=== PATIENT | male | born 1995 | race Caucasian/White ===

== ENCOUNTER → 2017-02-09 | Outpatient (CLI) | payer OTHER ==
[~2017-02-09] MED LIST: DIPH25CA65 PO; PENI-82 PO
--- NOTE | 2017-02-09 17:01 | DIAGNOSTIC IMAGING REPORT ---
TWO VIEW CHEST CLINICAL HISTORY: Preoperative examination. FINDINGS: PA and lateral chest radiographs are obtained. No prior studies are available for comparison at the time of dictation. The cardiomediastinal silhouette is unremarkable. The lungs and pleural spaces are clear. There is no pneumothorax. The bony thorax appears intact. IMPRESSION: No active disease in the chest. Electronically signed by: Jonathan Quezada M.D. 02/09/2017 5:00 PM Dictated Date/Time: 02/09/2017 4:59 PM
== END | disposition home or self-care (01) ==
LOC: C.RAD 16:27
DX: Z01.818 Encounter for other preprocedural examination (principal)

== ENCOUNTER → 2017-02-15 | Day surgery (SDC) | payer OTHER ==
[2017-02-01 11:51] VITALS: Ht 175.3 cm; Wt 64.5 kg
[2017-02-09 17:53] LABS: BASO % 0.3 %; BASO ABS # 0.02 K/uL (0-0.2); COMPLETE YES; EOS % 0.9 %; IG% 0.1 %; LYMPH % 30.8 %; LYMPH ABS # 2.32 K/uL (1.2-3.4); MEAN CORPUSCULAR HEMOGLOBIN 30.6 pg (25-34); MEAN CORPUSCULAR HGB CONC 35.1 g/dl (32-36); MONO % 10.6 %; NEUT % 57.3 %; PLATELET COUNT 289 K/uL (130-400); RED BLOOD COUNT 5.17 M/uL (4.7-6.1); WHITE BLOOD COUNT 7.53 K/uL (4.8-10.8)
[2017-02-09 17:58] LABS: INR 0.9 (0.9-1.1); PARTIAL THROMBOPLASTIN RATIO 1.1; POTASSIUM 4.1 mmol/L (3.5-5.1); PROTHROMBIN TIME (PATIENT) 10.1 SECONDS (9.0-12.0)
[~2017-02-15] VITALS: Ht 175.3 cm; Wt 64.5 kg
[~2017-02-15] MED LIST changes: +ACETAMINOPHEN 1000 MG/100 ML IV IV ONE; +ACETAMINOPHEN/HYDROCODONE ELIX 15 ML/CUP UDP PO PRN; +ATROPINE SULFATE 0.1 MG/ML 5ML SYR IV PRN; +BACITRACIN/POLYMYXIN B OINT 15 GM TUBE EXT ONE; +DEXAMETHASONE SOD INJ 4 MG/ML VIAL ONE; +EpHEDrine SULFATE INJ 50 MG/ML AMP IV PRN; +FENTANYL CITRATE INJ 50 MCG/1 ML 2 ML VIAL ONE; +GLYCOPYRROLATE INJ 0.2 MG/ML VIAL ONE; +LACTATED RINGER'S 1000ML 1,000 ML IV SCH; +LIDOCAINE 2% JELLY 5 ML TUBE EXT ONE; +LIDOCAINE HCL 2% 2 ML VIAL (20MG/ML) ONE; +MIDAZOLAM HCL 1 MG/ML 2ML VIAL ONE; +NEOSTIGMINE METHYLSULFATE 5 MG/5 ML SYR ONE; +ONDANSETRON INJ 2 MG/ML 2 ML VIAL IV PRN; +ONDANSETRON INJ 2 MG/ML 2 ML VIAL ONE; +PROMETHAZINE HCL INJ 6.25 MG in SODIUM CHLORIDE 0.9% 50ML 50 ML IV PRN; +PROPOFOL IV EMULSION 10 MG/ML 20 ML VIAL IV ONE; +ROCURONIUM BROMIDE 10 MG/ML 5 ML VIAL ONE; +SUCCINYLCHOLINE CHLORIDE 20 MG/ML 10 ML VIAL IV ONE
--- NOTE | 2017-02-15 08:26 | History & Physical Bridge - [place] ---
H&P Re-Evaluation Bridge Note: I have examined the patient, reviewed the History & Physical and in the interval since the performance of the History & Physical I have noted the following changes of clinical significance: No changes noted
--- NOTE | 2017-02-15 09:20 | [facility] Operative Report ---
Operative Report Operative Date Feb 15, 2017. Pre-Operative Diagnosis Chronic Tonsillitis Post-Operative Diagnosis Same Procedure(s) Performed Tonsillectomy and Adenoidectomy Surgeon Dr. Tay Outside Machinist Surgeon(s) None Estimated Blood Loss 20ml Findings 1. 2+ ADENOIDS 2. 4+ TONSILS Specimens A. Right Tonsil B. Left Tonsil I attest to the content of the Intraoperative Record and any orders documented therein. Any exceptions are noted below.
--- NOTE | 2017-02-15 09:22 | Discharge Instructions ---
Discharge Instructions Date of Service Feb 15, 2017. Admission Reason for Admission: Chronic Tonsillitis Discharge Discharge Diagnosis / Problem: SAME Discharge Goals Goal(s): Therapeutic intervention Activity Recommendations Activity Limitations: as noted below 1. LIGHT ACTIVITY FOR 2WEEKS 2. SOFT DIET FOR 2WEEKS 3. NO DRIVING WHILE ON [place] 4. STAY IN LOCAL AREA FOR 2WEEKS . Current Hospital Diet Patient's current hospital diet: Full Liquid Diet Discharge Diet Recommended Diet: Full Liquid Diet Diet Texture: Mechanical Soft (ground) Procedures Procedures Performed: Tonsillectomy and Adenoidectomy Pending Studies Studies pending at discharge: no Medical Emergencies . Who to Call and When: Medical Emergencies: If at any time you feel your situation is an emergency, please call 911 immediately. . Non-Emergent Contact Non-Emergency issues call your: Surgeon . . "Provider Documentation" section prepared by Gabriele Tay. . VTE Core Measure Inpt VTE Proph given/why not?: SCD's
[2017-02-15] MEDS: FENTANYL CITRATE INJ 50 MCG/1 ML 2 ML VIAL IV PRN ×2 (10:00→10:12)
[2017-02-15 10:44] VITALS: TEMP 36.9
--- NOTE | 2017-02-15 10:49 | Anesthesia Progress Nt - [facility] ---
Anesthesia Post Op Note Date & Time Feb 15, 2017 at 10:49 Vital Signs Pain Intensity: 3 Vital Signs Past 12 Hours Date Time Temp Pulse Resp B/P (MAP) Pulse Ox O2 Delivery O2 Flow Rate FiO2 02/15/17 10:44 36.9 77 16 124/78 (93) 98 Room Air 02/15/17 10:31 90 16 02/15/17 10:31 88 16 139/83 97 02/15/17 10:27 37.2 73 16 139/83 96 Room Air 02/15/17 10:27 147/93 02/15/17 10:26 87 12 96 02/15/17 10:26 89 12 02/15/17 10:23 147/86 02/15/17 10:21 90 18 02/15/17 10:21 90 18 96 02/15/17 10:17 137/85 02/15/17 10:16 92 19 95 02/15/17 10:16 89 19 02/15/17 10:12 133/86 02/15/17 10:11 72 18 02/15/17 10:11 71 18 94 02/15/17 10:07 141/84 02/15/17 10:06 95 16 02/15/17 10:06 93 16 94 02/15/17 10:02 133/89 02/15/17 10:01 80 15 02/15/17 10:01 79 15 99 02/15/17 09:57 140/85 02/15/17 09:56 94 18 98 02/15/17 09:56 92 18 02/15/17 09:52 136/85 02/15/17 09:51 94 14 02/15/17 09:51 93 14 96 02/15/17 09:48 127/75 02/15/17 09:46 101 18 02/15/17 09:46 102 18 98 02/15/17 09:42 160/87 02/15/17 09:41 120 16 02/15/17 09:41 121 16 95 02/15/17 09:37 153/77 02/15/17 09:36 95 18 93 02/15/17 09:36 96 18 02/15/17 09:33 131/62 02/15/17 09:31 36.6 90 16 131/62 99 Humidified Oxygen 6 02/15/17 07:24 36.3 75 16 128/83 (57) 98 Room Air Notes Mental Status: alert / awake / arousable, participated in evaluation Pt Amnestic to Procedure: Yes Nausea / Vomiting: adequately controlled Pain: adequately controlled Airway Patency, RR, SpO2: stable & adequate BP & HR: stable & adequate Hydration State: stable & adequate Anesthetic Complications: no major complications apparent
[2017-02-15 11:11] VITALS: BP 120/69; PULSE 83; O2SAT 97
--- NOTE | 2017-02-15 12:39 | OPERATIVE REPORT ---
DATE OF OPERATION: 02/15/2017 PREOPERATIVE DIAGNOSES: 1. Chronic tonsillitis. 2. Tonsillar hypertrophy. POSTOPERATIVE DIAGNOSES: Same as well as chronic adenoiditis and adenoid hypertrophy. PROCEDURES: Tonsillectomy and adenoidectomy. SURGEON: Gabriele Tay MD ANESTHESIA: General endotracheal. ESTIMATED BLOOD LOSS: 20 mL. FINDINGS: 1. Normal palate. 2. 2+ chronically inflamed adenoids. 3. 4+ chronically inflamed hypertrophied tonsils. SPECIMENS: Right and left tonsil sent separately for permanent pathologic assessment. COMPLICATIONS: None. INDICATION FOR THE PROCEDURE: The patient is a 21-year-old male with the above-mentioned history who presents for the above-mentioned procedure on an outpatient elective basis. DETAILS OF PROCEDURE: After informed consent had been obtained from the patient, the patient was wheeled to the operating room and placed on the operative table in the supine position. Monitors were placed. After induction of general endotracheal anesthesia, the table was turned 90 degrees and the patient's head and neck were gently extended. Antibiotic ointment was applied to the lips and a mouth gag was carefully inserted, opened, and stabilized on a roll of towels. The palate was inspected and this was found to be normal. A catheter was then inserted into the right nasal cavity, and this was used to elevate the soft palate and uvula. A laryngeal mirror was used to inspect the nasopharynx and the intraoperative findings were of 2+ inflamed adenoids. These were removed using suction Bovie electrocautery while achieving hemostasis simultaneously. An Allis clamp was then used to grasp the right tonsil in the superior pole. Bovie electrocautery was used to remove the tonsil in the capsular plane with care to preserve the underlying mucosa and musculature of the anterior and posterior tonsillar pillars. The left tonsil was then removed in a similar fashion. The intraoperative findings were of 4+ hypertrophied chronically inflamed tonsils bilaterally. These were sent separately for permanent pathological assessment. The oral cavity and oropharynx were then irrigated and suctioned. Hemostasis was confirmed. The mouth gag was released for 1 minute. This was reopened and hemostasis was confirmed once again. An orogastric tube was placed and the stomach was suctioned free of air and stomach contents. 2% lidocaine jelly was placed in the bilateral tonsillar fossae for added anesthetic effect. This marked the end of the case. The patient tolerated the procedure well. There were no apparent complications. The patient was extubated and transferred to recovery room in stable condition. I attest to the content of the Intraoperative Record and any orders documented therein. Any exception s are noted below.
== END | disposition home or self-care (01) ==
LOC: X.SURG 07:14
DX: J35.01 Chronic tonsillitis (principal); F17.200 Nicotine dependence, unspecified, uncomplicated; Z82.5 Family history of asthma and other chronic lower respiratory diseases; Z82.3 Family history of stroke; Z82.49 Family history of ischemic heart disease and other diseases of the circulatory system; Z77.22 Contact with and (suspected) exposure to environmental tobacco smoke (acute) (chronic); K21.9 Gastro-esophageal reflux disease without esophagitis